=== PATIENT | female | born 1990 | race Hispanic/Latino ===

== ENCOUNTER 2019-01-22 22:04 | Emergency (ER) | payer OTHER | END 2019-01-22 23:13 | disposition home or self-care (01) | LOC: EDH 22:04 | DX: S93.521A Sprain of metatarsophalangeal joint of right great toe, initial encounter (principal); Z88.8 Allergy status to other drugs, medicaments and biological substances; Z98.890 Other specified postprocedural states; X58.XXXA Exposure to other specified factors, initial encounter; Y93.44 Activity, trampolining; Y92.89 Other specified places as the place of occurrence of the external cause; Y99.8 Other external cause status | CPT/HCPCS: 73630 ==

== ENCOUNTER 2019-05-29 21:56 | Emergency (ER) | payer OTHER ==
[2019-05-29] MEDS ORDERED: ACETAMINOPHEN 325 MG TAB ONE (22:51)
== END 2019-05-30 00:38 | disposition home or self-care (01) ==
LOC: EDH 21:56
DX: S06.0X9A Concussion with loss of consciousness of unspecified duration, initial encounter (principal); I10 Essential (primary) hypertension; Z98.890 Other specified postprocedural states; Z88.9 Allergy status to unspecified drugs, medicaments and biological substances; W21.81XA Striking against or struck by football helmet, initial encounter; Y93.61 Activity, american tackle football; Y92.321 Football field as the place of occurrence of the external cause; Y99.8 Other external cause status
CPT/HCPCS: 70450; 81025

== ENCOUNTER 2020-01-27 05:08 | Observation (INO) | payer MEDICAID, OTHER ==
[~2020-01-27] VITALS: Ht 157.5 cm; Wt 76.2 kg
[2020-01-27 05:54] LABS: APPEARANCE,URINE Clear (CLEAR); BILIRUBIN,URINE Negative (NEGATIVE); COLOR,URINE Yellow (YELLOW); GLUCOSE, URINE (UA) Negative (NEGATIVE); KETONES,URINE Negative (NEGATIVE); LEUKOCYTE ESTERASE ,URINE Moderate (NEGATIVE); NITRATE,URINE Negative (NEGATIVE); OCCULT BLOOD,URINE Large (NEGATIVE); PROTEIN,URINE Trace mg/dL (NEGATIVE); UROBILINOGEN,URINE 0.2 mg/dL (0.2-1.0)
[2020-01-27 06:02] LABS: AMPHET/METH SCREEN,URINE NEGATIVE (NEGATIVE); BARBITURATE SCREEN, URINE NEGATIVE (NEGATIVE); BENZODIAZEPINES SCREEN,URINE NEGATIVE (NEGATIVE); CANNABINOID SCREEN,URINE NEGATIVE (NEGATIVE); COCAINE SCREEN,URINE NEGATIVE (NEGATIVE); OPIATE SCREEN,URINE NEGATIVE (NEGATIVE); PHENCYCLIDINE SCREEN,URINE NEGATIVE (NEGATIVE)
[2020-01-27 06:12] LABS: BACTERIA,URINE Moderate /HPF (None Seen); SQUAMOUS EPITHELIAL CELL,UR Few /HPF (0-2)
[2020-01-27] MEDS ORDERED: LACTATED RINGERS 1000ML 1,000 ML IV SCH (06:45)
[2020-01-27] MEDS ORDERED: CEFTRIAXONE SODIUM 1 GM IVP SCH (06:45)
== END 2020-01-27 09:20 | disposition home or self-care (01) ==
LOC: EDH 05:08 → LDH 05:09
PROVIDERS: ADMIT Obstetrics & Gynecology; ATTEND Obstetrics & Gynecology
DX: O26.893 Other specified pregnancy related conditions, third trimester (principal); R10.30 Lower abdominal pain, unspecified; M54.5 Low back pain; O16.3 Unspecified maternal hypertension, third trimester; Z86.19 Personal history of other infectious and parasitic diseases; Z88.8 Allergy status to other drugs, medicaments and biological substances; Z3A.28 28 weeks gestation of pregnancy
CPT/HCPCS: 80305; 81001; 87077; 87088; 87186; 96361; 96374; 99284; G0378 ×4; J0696; 96360